=== PATIENT | male | born 1985 | race Hispanic/Latino ===

== ENCOUNTER 2017-08-21 13:34 | Observation (INO) | payer OTHER, SELFPAY ==
[~2017-08-21] VITALS: Ht 188 cm; Wt 94.8 kg
[2017-08-21] VITALS (19 sets, daily range): BP systolic 113–148; BP diastolic 61–90
[2017-08-21 15:51] LABS: APPEARANCE,URINE Clear (CLEAR); BASOPHILS % (AUTO) 0.5 % (0.0-5.0); BILIRUBIN,URINE Negative (NEGATIVE); COLOR,URINE Yellow (YELLOW); EOSINOPHILS % (AUTO) 2.4 % (0.0-8.0); GLUCOSE, URINE (UA) Negative (NEGATIVE); HEMATOCRIT 37.3 % (42-54); KETONES,URINE Negative (NEGATIVE); LEUKOCYTE ESTERASE ,URINE Negative (NEGATIVE); LYMPHOCYTES % (AUTO) 15.1 % (21.0-51.0); MEAN CORPUSCULAR HEMOGLOBIN 31.2 pg (27.0-33.0); MEAN CORPUSCULAR HGB CONC 35.2 g/dL (32.0-36.0); MEAN CORPUSCULAR VOLUME 88.7 fL (79-99); MONOCYTES % (AUTO) 7.7 % (3.0-13.0); NEUTROPHILS % (AUTO) 74.3 % (40.0-77.0); NITRATE,URINE Negative (NEGATIVE); OCCULT BLOOD,URINE Negative (NEGATIVE); PH,URINE 7.5 (5.0-8.0); PLATELET COUNT (AUTO) 217 K/uL (130-400); PROTEIN,URINE Negative (NEGATIVE); RED BLOOD CELL COUNT(AUTO) 4.21 MIL/uL (4.50-6.20); RED CELL DISTRIBUTION WIDTH 13.1 % (11.0-15.5); UROBILINOGEN,URINE 0.2 mg/dL (0.2-1.0); WHITE BLOOD COUNT (AUTO) 9.4 K/uL (4.8-10.8)
[2017-08-21 16:02] LABS: CREATININE 0.9 mg/dL (0.5-1.5); POTASSIUM 4.2 mmol/L (3.5-5.1)
[2017-08-21 16:07] LABS: ALBUMIN 3.4 g/dL (3.5-5.0); BILIRUBIN,TOTAL 0.5 mg/dL (0.2-1.0); TOTAL PROTEIN, SERUM 7.6 g/dL (6.0-8.3)
[2017-08-21] MEDS ORDERED: SODIUM CHLORIDE 0.9% 1000ML 1,000 ML IV ONE (17:12)
[2017-08-21] MEDS ORDERED: BUPIVACAINE/PF 0.25% 30ML VIAL IJ ONE (18:09)
[2017-08-21] MEDS ORDERED: MIDAZOLAM HCL 1 MG/ML 2ML VIAL ONE (18:16)
[2017-08-21] MEDS ORDERED: GLYCOPYRROLATE 0.2 MG/ML 5 ML VIAL ONE ×2 (18:16→18:35)
[2017-08-21] MEDS ORDERED: PROPOFOL 10 MG/ML 20ML VIAL IV ONE (18:16)
[2017-08-21] MEDS ORDERED: ONDANSETRON HCL 4 MG/2 ML VIAL ONE ×2 (18:16→18:34)
[2017-08-21] MEDS ORDERED: DEXAMETHASONE SOD PHOSPHATE 10MG/ML 1ML VIAL ONE ×2 (18:16→18:35)
[2017-08-21] MEDS ORDERED: NEOSTIGMINE 5MG/5ML SYR IV ONE (18:16)
[2017-08-21] MEDS ORDERED: LIDOCAINE PF 2% 5ML ABBOJECT ONE (18:16)
[2017-08-21] MEDS ORDERED: SUCCINYLCHOLINE 200MG/10ML SYR ONE (18:16)
[2017-08-21] MEDS ORDERED: FENTANYL CITRATE PF 50 MCG/1 ML 2ML VIAL ONE ×4 (18:17→19:53)
[2017-08-21] MEDS ORDERED: CEFAZOLIN SODIUM 1 GM VIAL ONE (18:48)
[2017-08-21] MEDS ORDERED: LIDOCAINE HCL 4% LTA SOL 4 ML VIAL ONE (19:00)
[2017-08-21] MEDS ORDERED: ROCURONIUM BROMIDE 10MG/1ML 5ML VL ONE (19:00)
[2017-08-21] MEDS ORDERED: MEPERIDINE-PF 25 MG/ML SYG ONE ×3 (20:27→21:40)
[2017-08-21] MEDS ORDERED: LACTATED RINGERS 1000ML 1,000 ML IV ONE (21:41)
[2017-08-22] VITALS (8 sets, daily range): BP systolic 121–131; BP diastolic 72–84
[2017-08-22] MEDS ORDERED: TRAMADOL HCL 50 MG TABLET ONE (00:33)
[2017-08-22] MEDS ORDERED: MEPERIDINE-PF 25 MG/ML SYG IV PRN (00:45)
[2017-08-22] MEDS: LACTATED RINGERS 1000ML 1,000 ML IV SCH ×4 (00:45→23:22)
[2017-08-22] MEDS ORDERED: TRAMADOL HCL 50 MG TABLET PO PRN (00:45)
[2017-08-22] MEDS ORDERED: ACETAMINOPHEN 325 MG TAB PO PRN (00:45)
[2017-08-22] MEDS: TRAMADOL HCL 50 MG TABLET PO PRN (08:32)
[2017-08-22] MEDS: ONDANSETRON HCL MDV 20ML 2 MG/ML VIAL IVP PRN ×2 (08:36→20:05)
[2017-08-22] MEDS: IBUPROFEN 600 MG TABLET PO SCH (23:22)
[2017-08-23] VITALS: BP 130/67
[2017-08-23 04:00] VITALS: BP 113/72
[2017-08-23] MEDS: IBUPROFEN 600 MG TABLET PO SCH ×2 (04:20→13:49)
[2017-08-23 07:30] VITALS: BP 112/69
[2017-08-23] MEDS: TRAMADOL HCL 50 MG TABLET PO PRN (09:21)
[2017-08-23 11:00] VITALS: BP 115/70
== END 2017-08-23 15:20 | disposition home or self-care (01) ==
LOC: EDH 13:34 → INTOOBSV 13:35 → EDHIP 13:35 → 4AH 20:58
PROVIDERS: ADMIT Surgery; ATTEND Surgery
DX: K35.80 Unspecified acute appendicitis (principal)
CPT/HCPCS: 36415; 44970; 74176; 80053; 81003; 83690; 85025; 88304; 96374; 96375; 96376; 99285; A4344; A4450; A4649 ×6; A4930 ×2; G0378 ×50; J0330; J0690; J1100 ×2; J2001; J2175 ×4; J2250; J2405 ×2; J2704; J2710; J3010 ×4; J3490 ×4; J7030 ×2; J7120 ×2